=== PATIENT | male | born 1965 | race Caucasian/White ===

== ENCOUNTER 2022-12-20 20:03 | Emergency (ER) | payer SELFPAY ==
[~2022-12-20] VITALS: Ht 188 cm; Wt 99.8 kg
[2022-12-20 21:07] VITALS: BP 132/74; PULSE 99; RESP 20; TEMP 98.1; O2SAT 99
== END 2022-12-20 21:07 | disposition home or self-care (01) ==
LOC: MED 20:03
DX: Z02.89 Encounter for other administrative examinations (principal); V49.88XA Car occupant (driver) (passenger) injured in other specified transport accidents, initial encounter; Y93.89 Activity, other specified; Y92.89 Other specified places as the place of occurrence of the external cause; Y99.8 Other external cause status
CPT/HCPCS: 99283